=== PATIENT | female | born 1960 | race Caucasian/White ===

== ENCOUNTER → 2019-07-14 | Outpatient (CLI) | payer OTHER ==
[~2019-07-14] MED LIST: BENTYL 10 MG CA10 M1 PO; CHLORDIAZEPOXI1 EAC1 PO; COZAAR 25 MG TA25 M2 PO; IBUPROFEN 800800 M1 PO; KEFLEX500 MG PO; NORCO 5-325 TA1 EACH PO; PROTONIX40 M1 PO; VIBRAMYCIN 100100 M2 PO
== END ==
LOC: M.RAD 08:22
DX: Z12.31 Encounter for screening mammogram for malignant neoplasm of breast (principal); Z13.820 Encounter for screening for osteoporosis; Z78.0 Asymptomatic menopausal state

== ENCOUNTER → 2019-07-14 | Outpatient (CLI) | payer OTHER | LOC: M.CT 08:30 | DX: Z13.6 Encounter for screening for cardiovascular disorders (principal) ==